=== PATIENT | female | born 1975 | race Caucasian/White ===

== ENCOUNTER → 2020-03-19 | Outpatient (CLI) | payer OTHER ==
--- NOTE | 2020-03-19 15:59 | RAD ---
EXAM DESCRIPTION: Abdomen Series CLINICAL HISTORY: 44 years Female, VOMITING COMPARISON: None. Findings: 3 view(s)/radiograph(s) No acute cardiopulmonary abnormality. No free air beneath the diaphragm. Nonobstructive bowel gas pattern. Small stool volume. 3 mm calcification overlying the left renal shadow. Pelvic phleboliths. Surgical clips in the right pelvis. No air-fluid level. No free air. No acute osseous abnormality. IMPRESSION: No acute radiographic abnormality. Electronically signed by: Layo Bernard MD 03/19/2020 3:[address] [employer]
== END ==
LOC: RAD 11:35
PROVIDERS: ATTEND Nurse Practitioner Family
DX: R11.10 Vomiting, unspecified (principal)